=== PATIENT | male | born 1975 | race Caucasian/White ===

== ENCOUNTER → 2025-01-27 15:47 | Outpatient (REF) | payer BC, SELFPAY | LOC: HWRCS 15:47 | PROVIDERS: ATTENDING PHYSICIAN Nuclear Medicine Nuclear Cardiology; FAMILY PHYSICIAN Family Medicine | DX: I25.10 Atherosclerotic heart disease of native coronary artery without angina pectoris (principal); E66.01 Morbid (severe) obesity due to excess calories | CPT/HCPCS: 93306 ==